=== PATIENT | male | born 1995 | race African-American/Black ===

== ENCOUNTER 2020-08-18 12:38 | Emergency (ER) | payer OTHER, SELFPAY ==
--- NOTE | ~2020-08-18 | XR_ITS ---
XR finger 5th LT min 2V 08/18/2020 13:07 INDICATION: Left fifth finger pain after trauma PROCEDURE: 3 views left fifth finger COMPARISON: . No prior studies for comparison. FINDINGS: Fracture, dislocation or subluxation is not identified. The soft tissues appear within norm al limits. No foreign bodies are identified. IMPRESSION: 1: NO ACUTE BONE OR JOINT ABNORMALITY IDENTIFIED. Reviewed, dictated and finalized at location B.
[2020-08-18 12:53] VITALS: BP 136/85; PULSE 113; RESP 16; TEMP 36.9; O2SAT 99
--- NOTE | 2020-08-18 13:18 | ED.UPPEXIN ---
HPI - Extremity Injury (Upper) General Chief Complaint: Extremity Injury, Upper Stated Complaint: Left hand finger pain Related Data Home Medications Medication Instructions Recorded Confirmed No Home Medications 08/18/20 08/18/20 Allergies Allergy/AdvReac Type Severity Reaction Status Date / Time No Known Allergies Allergy Unverified 08/18/20 12:54 Course Vital Signs Vital signs: Vital Signs Temperature 98.4 F 08/18/20 12:53 Pulse Rate 113 H 08/18/20 12:53 Respiratory Rate 16 08/18/20 12:53 Blood Pressure 136/85 08/18/20 12:53 Pulse Oximetry 99 08/18/20 12:53 Temperature 98.4 F 08/18/20 12:53 Pulse Rate 113 H 08/18/20 12:53 Respiratory Rate 16 08/18/20 12:53 Blood Pressure 136/85 08/18/20 12:53 Pulse Oximetry 99 08/18/20 12:53 Discharge Plan Discharge Clinical Impression: Finger dysfunction Finger sprain Qualifiers: Encounter type: initial encounter Finger: little finger Sprain of finger site: unspecified site Laterality: left Qualified Code(s): S63.617A - Unspecified sprain of left little finger, initial encounter Patient Disposition: Home, Self-Care Condition: Stable Instructions: Antibiotic Form, Finger Sprain (ED) Additional Instructions: Avoid weight bearing until the pain subsides. Ice to the area 20-30 minutes 4-6 times a day Elevate above heart Elastic wrap or orthopedic splint as directed for comfort for the next 5-7 days Tylenol for lesser pain Ibuprofen regularly for the next 2-3 days for the inflammation Follow up with your primary care provider if the condition is not improving within 1 week or sooner if the condition worsens with numbness, tingling, decrease sensation with weakness to seek ER. Prescriptions: No Action No Home Medications RF: 0 Follow-up/Referrals: Donis Oviedo MD [Physician] - (call and schedule) PHYSICIAN,[employer] [Primary Care Provider] - Stand Alone Forms: Work/School Release IP Time of Disposition: 13:29
[2020-08-18 13:36] VITALS: BP 136/85; PULSE 113; RESP 16; TEMP 36.9; O2SAT 99
== END 2020-08-18 13:33 | disposition home or self-care (01) ==
PROVIDERS: Emergency Provider Nurse Practitioner Family
DX: M20.002 Unspecified deformity of left finger(s) (principal); S63.617A Unspecified sprain of left little finger, initial encounter; X58.XXXA Exposure to other specified factors, initial encounter
CPT/HCPCS: 29130; 73140; 99213; G0463